=== PATIENT | female | born 1970 | race American Indian/Alaskan Native ===

== ENCOUNTER 2017-02-01 08:37 | Emergency (ER) | payer MEDICAID ==
[2017-02-01 08:50] VITALS: BP 112/59
--- NOTE | 2017-02-01 09:53 | Emergency Department Report ---
ED Back Pain/Injury HPI - General Chief Complaint: Back Pain/Injury Stated Complaint: BACK /RT FOOT/LEG PAIN Time Seen by Provider: 02/01/17 09:24 Source: patient Limitations: No Limitations - History of Present Illness Initial Comments: 46-year-old female presents with complaint of one month of lower back pain radiating down her right leg. Denies any saddle paresthesias no bladder bladder or bowel control patient is fully ambulatory without assistance. Patient also complaining of not having her glasses prescription corrected, states that her glasses sometimes give her sensation of dizziness as she needs to get corrected and has not seen an emergency management system director in some time. Denies any direct trauma no falls no fevers no chills denies any IV drug use. Patient is fully ambulatory without assistance. MD Complaint: back pain Similar Symptoms Previously: Yes Place: home, work Radiation: buttocks, right leg Severity: moderate Severity scale (0 -10): 6 Quality: aching Consistency: intermittent Improves With: immobilization Worsens With: movement, walking Context: while lifting, turning/twisting, bending - Related Data Previous Rx's Medication Instructions Recorded Last Taken Type Amoxicillin/K Clav Tab [Augmentin 1 tab PO BID #20 tablet 07/03/14 Unknown Rx 875MG] Naproxen [Naprosyn TAB] 500 mg PO BID #20 tablet 07/03/14 Unknown Rx Cyclobenzaprine [Flexeril] 10 mg PO TID PRN #15 tablet 02/01/17 Unknown Rx Naproxen [Naprosyn TAB] 500 mg PO BID PRN #25 tablet 02/01/17 Unknown Rx Allergies Allergy/AdvReac Type Severity Reaction Status Date / Time No Known Allergies Allergy Verified 02/01/17 08:45 ED Review of Systems ROS: Stated complaint: BACK /RT FOOT/LEG PAIN Other details as noted in HPI Constitutional: denies: chills, fever Eyes: denies: eye pain, eye discharge, vision change ENT: denies: ear pain, throat pain Respiratory: denies: cough, shortness of breath, wheezing Cardiovascular: denies: chest pain, palpitations Endocrine: no symptoms reported Gastrointestinal: denies: abdominal pain, nausea, diarrhea Genitourinary: denies: urgency, dysuria, discharge Musculoskeletal: back pain. denies: joint swelling, arthralgia Skin: denies: rash, lesions Neurological: denies: headache, weakness, paresthesias Psychiatric: denies: anxiety, depression Hematological/Lymphatic: denies: easy bleeding, easy bruising ED Past Medical Hx - Past Medical History Hx Hypertension: Yes - Social History Smoking Status: Current Every Day Smoker Substance Use Type: Alcohol - Medications Home Medications: Home Medications Medication Instructions Recorded Confirmed Last Taken Type Amoxicillin/K Clav Tab [Augmentin 1 tab PO BID #20 tablet 07/03/14 Unknown Rx 875MG] Naproxen [Naprosyn TAB] 500 mg PO BID #20 tablet 07/03/14 Unknown Rx Cyclobenzaprine [Flexeril] 10 mg PO TID PRN #15 tablet 02/01/17 Unknown Rx Naproxen [Naprosyn TAB] 500 mg PO BID PRN #25 tablet 02/01/17 Unknown Rx ED Physical Exam - General Limitations: No Limitations General appearance: alert, in no apparent distress - Head Head exam: Present: atraumatic, normocephalic - Eye Eye exam: Present: normal appearance, PERRL, EOMI - ENT ENT exam: Present: mucous membranes moist - Neck Neck exam: Present: normal inspection, full ROM - Respiratory Respiratory exam: Present: normal lung sounds bilaterally. Absent: respiratory distress - Cardiovascular Cardiovascular Exam: Present: regular rate, normal rhythm. Absent: systolic murmur, diastolic murmur, rubs, gallop - GI/Abdominal GI/Abdominal exam: Present: soft, normal bowel sounds - Extremities Exam Extremities exam: Present: normal inspection, full ROM - Back Exam Back exam: Present: normal inspection, full ROM - Expanded Back Exam Expanded Back exam: Positive Straight Leg Raise: Right (positive at 30 degrees ) - Neurological Exam Neurological exam: Present: alert, oriented X3, CN II-XII intact, normal gait - Expanded Neurological Exam Expanded Patient oriented to: Present: person, place, time Cerebellar function: Finger to Nose: Normal, Heel to [place]: Normal, [place]: Normal Sensory exam: Upper Extremity Light Touch: Normal, Upper Extremity Pin Prick: Normal, Lower Extremity Light Touch: Normal, Lower Extremity Pin Prick: Normal Motor strength exam: RUE: 5, LUE: 5, RLE: 5, LLE: 5 DTR: knee (R): 3+, knee (L): 3+, ankle (R): 3+, ankle (L): 3+ Best Eye Response ([place]): (4) open spontaneously Best Motor Response ([place]): (6) obeys commands Best Verbal Response ([place]): (5) oriented [place] Total: 15 - Psychiatric Psychiatric exam: Present: normal affect, normal mood - Skin Skin exam: Present: warm, dry, intact, normal color. Absent: rash ED Course Vital Signs 02/01/17 08:46 Temperature 98.5 F Pulse Rate 87 Respiratory 18 Rate Blood Pressure 112/59 O2 Sat by Pulse 95 Oximetry ED Medical Decision Making - Medical Decision Making A/P: Sciatica, need for revision of prescription glasses 1-naproxen and Flexeril when necessary 2-patient referred to primary care and orthopedics 3-patient has no signs of cord compression no signs of cauda equina, fully ambulatory without assistance, no saddle paresthesias, no bladder or bowel incontinence on exam rectal tone normal. I advised patient to return to the ED if she experiences any paralysis or paresthesias loss of bladder or bowel control, patient expressed understanding of these instructions 4-I referred patient to ophthalmology for correction of her glasses gross vision is intact, vision 20/30 bilaterally Critical care attestation.: If time is entered above; I have spent that time in minutes in the direct care of this critically ill patient, excluding procedure time. ED Disposition Clinical Impression: Sciatica of right side Disposition: DISCHARGED TO HOME OR SELFCARE Is pt being admited?: No Does the pt Need Aspirin: No Condition: Stable Instructions: Sciatica (ED) Prescriptions: Cyclobenzaprine [Flexeril] 10 mg PO TID PRN #15 tablet PRN Reason: Muscle Spasm Naproxen [Naprosyn TAB] 500 mg PO BID PRN #25 tablet PRN Reason: Pain Referrals: DEBBIE BONNER MD [Staff Physician] - 3-5 Days PRIMARY CAREMD [Primary Care Provider] - 3-5 Days LON JADE MD [Staff Physician] - 3-5 Days FLEX PALMER MD [Referring] - 3-5 Days Forms: Work/School Release Form(ED) Time of Disposition: 11:04
[2017-02-01] MEDS: ANTIVERT PO ONE (10:04)
[2017-02-01] MEDS: MOTRIN PO ONE (10:04)
[2017-02-01] MEDS: FLEXERIL PO ONE (10:05)
== END 2017-02-01 11:21 | disposition home or self-care (01) ==
LOC: ED 08:37
DX: M54.31 Sciatica, right side (principal); I10 Essential (primary) hypertension; F17.200 Nicotine dependence, unspecified, uncomplicated
CPT/HCPCS: 99282